=== PATIENT | female | born 2000 | race Two or more races ===

== ENCOUNTER 2018-06-02 19:44 | Emergency (ER) | payer OTHER ==
[~2018-06-02] VITALS: Ht 160 cm; Wt 51.4 kg
[2018-06-02 20:01] VITALS: Ht 160 cm; Wt 51.4 kg
[2018-06-02 21:17] LABS: BASOPHIL % 0.6 % (0-2); PLATELET COUNT 267 x10^3mcL (130-400); RED CELL DISTRIBUTION WIDTH 13.1 % (11.5-14.5)
[2018-06-02 22:14] VITALS: BP 99/61
== END 2018-06-02 22:14 | disposition home or self-care (01) ==
LOC: ED 19:44
PROVIDERS: Emergency Medicine
DX: N93.9 Abnormal uterine and vaginal bleeding, unspecified (principal); Z88.6 Allergy status to analgesic agent; Z98.890 Other specified postprocedural states
CPT/HCPCS: 36415

== ENCOUNTER 2019-12-07 12:55 | Emergency (ER) | payer MEDICAID ==
[~2019-12-07] VITALS: Ht 157.5 cm; Wt 55.8 kg
[2019-12-07 13:13] VITALS: Ht 157.5 cm; Wt 55.8 kg
[2019-12-07 14:12] VITALS: BP 125/74
== END 2019-12-07 14:12 | disposition home or self-care (01) ==
LOC: ED 12:55
DX: R21 Rash and other nonspecific skin eruption (principal); L29.9 Pruritus, unspecified; Z98.890 Other specified postprocedural states